=== PATIENT | male | born 1940 | race Caucasian/White ===

== ENCOUNTER 2021-12-01 16:04 | Observation (INO) ==
[2021-12-01] MEDS ORDERED: Naloxone 0.4 MG/ML INJ IVP PRN (18:33)
[2021-12-02 02:10] LABS: Basophils % 0.4 %; Hematocrit 41.1 % (37.5-50.1); Hemoglobin 13.5 g/dL (12.9-16.9); Immature Granulocytes % 0.6 % (0-4); Lymphocytes # 0.5 K/mcL (0.6-4.6); Lymphocytes % 11.7 %; Mean Corpuscular HGB Conc 32.8 g/dL (31.6-35.5); Mean Corpuscular Hemoglobin 29.5 pg (28.0-33.3); Mean Corpuscular Volume 89.9 fL (83.0-100.0); Mean Platelet Volume 9.9 fL (9.4-12.4); Monocytes # 0.2 K/mcL (0.0-1.3); Monocytes % 4.1 %; Neutrophils # 3.9 K/mcL (1.6-8.9); Platelet Count 221 K/mcL (140-400); Red Blood Count 4.57 M/mcL (4.19-5.50); Red Cell Distribution Width 14.6 % (11.5-14.5); Segmented Neutrophils % 83.2 %; White Blood Count 4.6 K/mcL (4.3-11.1)
[2021-12-02 02:20] LABS: BUN/Creatinine Ratio 30 (6-26); Blood Urea Nitrogen 19 mg/dL (8-23); Calcium 7.9 mg/dL (8.6-10.3); Carbon Dioxide 22 mEq/L (23-29); Chloride 104 mEq/L (98-107); Glucose 195 mg/dL (70-105); Osmolality,Calculated 288 (280-300); Potassium 3.8 mEq/L (3.5-5.1); Sodium 135 mEq/L (136-145); eGFR For African Americans > 60 (> 60); eGFR For Non-African Americans > 60 (> 60)
[2021-12-02] MEDS: Ipratropium/Albuterol Neb 3 ML IH SCH ×4 (05:18→19:38)
[2021-12-02] MEDS ORDERED: *HR* Heparin 5,000 UNIT/ML VIAL SQ SCH (06:00)
[2021-12-02] MEDS: lisinopriL 5 MG TABLET PO SCH (11:57)
[2021-12-02] MEDS: Chlorhexidine Rinse 15 ML MOUTHWASH MM SCH ×2 (11:58→20:42)
[2021-12-02] MEDS: Multivit/Ca/Min/Fe/FA 1 TAB TABLET PO SCH (11:58)
[2021-12-02] MEDS: Metoprolol XL (24 HR) Succ 25 MG TAB.ER.24H PO SCH (11:58)
[2021-12-02] MEDS: levoFLOXacin 750 MG TABLET PO SCH (11:58)
[2021-12-02] MEDS: Lactobacillus 1 EACH CAP.SPRINK PO SCH ×2 (11:59→20:42)
[2021-12-02] MEDS: Furosemide 20 MG/2 ML VIAL IVP SCH (11:59)
[2021-12-02] MEDS: *HR* Heparin 5,000 UNIT/ML VIAL SQ SCH ×2 (14:39→20:42)
[2021-12-03 03:06] LABS: Hematocrit 41.8 % (37.5-50.1); Hemoglobin 14.1 g/dL (12.9-16.9); Mean Corpuscular HGB Conc 33.7 g/dL (31.6-35.5); Mean Corpuscular Hemoglobin 29.7 pg (28.0-33.3); Mean Platelet Volume 10.2 fL (9.4-12.4); Platelet Count 301 K/mcL (140-400); Red Blood Count 4.75 M/mcL (4.19-5.50); Red Cell Distribution Width 14.4 % (11.5-14.5)
[2021-12-03 03:07] LABS: White Blood Count 8.3 K/mcL (4.3-11.1)
[2021-12-03 03:27] LABS: BUN/Creatinine Ratio 32 (6-26); Blood Urea Nitrogen 23 mg/dL (8-23); Calcium 8.4 mg/dL (8.6-10.3); Carbon Dioxide 25 mEq/L (23-29); Chloride 100 mEq/L (98-107); Glucose 222 mg/dL (70-105); Osmolality,Calculated 289 (280-300); Potassium 3.1 mEq/L (3.5-5.1); Sodium 134 mEq/L (136-145); eGFR For African Americans > 60 (> 60); eGFR For Non-African Americans > 60 (> 60)
[2021-12-03] MEDS: Ipratropium/Albuterol Neb 3 ML IH SCH ×2 (03:30→08:03)
[2021-12-03] MEDS: *HR* Heparin 5,000 UNIT/ML VIAL SQ SCH ×3 (07:38→20:50)
[2021-12-03] MEDS: Chlorhexidine Rinse 15 ML MOUTHWASH MM SCH ×2 (07:38→20:49)
[2021-12-03] MEDS: lisinopriL 5 MG TABLET PO SCH (07:39)
[2021-12-03] MEDS: Multivit/Ca/Min/Fe/FA 1 TAB TABLET PO SCH (07:39)
[2021-12-03] MEDS: Metoprolol XL (24 HR) Succ 25 MG TAB.ER.24H PO SCH (07:39)
[2021-12-03] MEDS: levoFLOXacin 750 MG TABLET PO SCH (07:39)
[2021-12-03] MEDS: Lactobacillus 1 EACH CAP.SPRINK PO SCH ×2 (07:39→20:49)
[2021-12-03] MEDS: Furosemide 20 MG/2 ML VIAL IVP SCH (07:39)
[2021-12-03 08:21] LABS: Alanine Aminotransferase 108 Units/L (7-52); Alkaline Phosphatase 118 Units/L (34-104); Aspartate Amino Transferase 63 Units/L (13-39); Bilirubin,Direct 0.2 mg/dL (0.0-0.2); Bilirubin,Indirect 0.6 mg/dL (0.0-1.0); Bilirubin,Total 0.8 mg/dL (0.3-1.0)
[2021-12-03] MEDS: Levalbuterol Neb 0.63 MG/3 ML IH SCH ×2 (15:26→20:03)
[2021-12-04] MEDS: Acetaminophen 325 MG TABLET PO PRN (00:18)
[2021-12-04] MEDS: Levalbuterol Neb 0.63 MG/3 ML IH SCH ×4 (03:58→22:13)
[2021-12-04] MEDS: *HR* Heparin 5,000 UNIT/ML VIAL SQ SCH ×3 (05:34→20:38)
[2021-12-04] MEDS: Multivit/Ca/Min/Fe/FA 1 TAB TABLET PO SCH (07:46)
[2021-12-04] MEDS: Chlorhexidine Rinse 15 ML MOUTHWASH MM SCH ×2 (07:46→20:39)
[2021-12-04] MEDS: Furosemide 20 MG/2 ML VIAL IVP SCH (07:46)
[2021-12-04] MEDS: Metoprolol XL (24 HR) Succ 25 MG TAB.ER.24H PO SCH ×2 (07:46→20:38)
[2021-12-04] MEDS: levoFLOXacin 750 MG TABLET PO SCH (07:46)
[2021-12-04] MEDS: lisinopriL 5 MG TABLET PO SCH (07:47)
[2021-12-04] MEDS: Lactobacillus 1 EACH CAP.SPRINK PO SCH ×2 (07:47→20:38)
[2021-12-04] MEDS ORDERED: Metoprolol XL (24 HR) Succ 25 MG TAB.ER.24H PO SCH (21:00)
[2021-12-05] MEDS: Levalbuterol Neb 0.63 MG/3 ML IH SCH ×3 (03:58→16:04)
[2021-12-05] MEDS: *HR* Heparin 5,000 UNIT/ML VIAL SQ SCH ×2 (05:15→15:59)
[2021-12-05] MEDS: lisinopriL 5 MG TABLET PO SCH (07:38)
[2021-12-05] MEDS: Furosemide 20 MG/2 ML VIAL IVP SCH (07:38)
[2021-12-05] MEDS: Metoprolol XL (24 HR) Succ 25 MG TAB.ER.24H PO SCH (07:38)
[2021-12-05] MEDS: Lactobacillus 1 EACH CAP.SPRINK PO SCH (07:38)
[2021-12-05] MEDS: Multivit/Ca/Min/Fe/FA 1 TAB TABLET PO SCH (07:38)
[2021-12-05] MEDS: levoFLOXacin 750 MG TABLET PO SCH (07:41)
[2021-12-05] MEDS: Chlorhexidine Rinse 15 ML MOUTHWASH MM SCH (07:41)
[2021-12-05] MEDS: Acetaminophen 325 MG TABLET PO PRN (07:55)
[2021-12-05] MEDS ORDERED: Metoprolol XL (24 HR) Succ 25 MG TAB.ER.24H PO SCH (09:00)
[2021-12-05 15:51] VITALS: BP 125/71; PULSE 99; TEMP 97.9
[2021-12-05 15:59] LABS: Influenza A PCR Negative (Negative); Influenza B PCR Negative (Negative); Resp. Syncytial Virus PCR Negative (Negative)
[2021-12-05 16:03] LABS: SARS-CoV-2 by PCR (In House) Positive (Negative)
[2021-12-05 16:07] VITALS: O2SAT 92
[2021-12-06] MEDS ORDERED: Cholecalciferol (D-3) 1,000 UNIT (25MCG) TABLET PO SCH (09:00)
[2021-12-06] MEDS ORDERED: Multivit/Ca/Min/Fe/FA 1 TAB TABLET PO SCH (09:00)
== END 2021-12-05 16:55 ==
LOC: 3NENU → SUATTDRO 17:51
PROVIDERS: ADMIT Internal Medicine; ATTEND Family Medicine